=== PATIENT | female | born 1990 | race African-American/Black ===

== ENCOUNTER 2025-02-05 22:06 | Emergency (ER) | payer OTHER ==
[2025-02-05 22:17] VITALS: BMI 35.9
[2025-02-05 23:41] LABS: HEMATOCRIT 37.1 % (34.1-44.9); MEAN CELL VOLUME 84.7 fl (79.4-94.8); PLATELET COUNT # 357 x10^3/uL (182-369); RDW 11.2 % (12.1-16.8)
[2025-02-06 00:04] LABS: POTASSIUM 4.7 mmol/L (3.5-5.1)
[2025-02-06 00:06] LABS: CALCIUM 9.4 mg/dL (8.5-10.1)
[2025-02-06 00:07] LABS: ALBUMIN 3.1 g/dl (3.4-5.0); BLOOD UREA NITROGEN 9.8 mg/dL (7-18)
[2025-02-06 00:10] LABS: CREATININE 0.6 mg/dL (0.55-1.3)
[2025-02-06 00:12] LABS: BILIRUBIN,TOTAL 0.8 mg/dL (0.2-1); TOT PROT 7.6 g/dl (6.4-8.2)
[2025-02-06 00:33] LABS: ERYTHROCYTE SEDIMENTATION RATE 81 mm/hr (0-20)
[2025-02-06 00:39] VITALS: BP 127/82
[2025-02-06] MEDS ORDERED: ACETAMINOPHEN INJECTION 100 ML ONE (01:27)
[2025-02-06] MEDS: ACETAMINOPHEN 1000 MG/100 ML BAG IVPB ONE (01:36)
[2025-02-06] MEDS: SODIUM CHLORIDE 0.9% 500 ML INFUS.BAG IV ONE (01:36)
[2025-02-06 03:30] VITALS: PULSE 100; RESP 18; TEMP 98.2
[2025-02-06] MEDS ORDERED: CLINDAMYCIN HCL 150 MG CAPSULE (FP) ONE (03:35)
[2025-02-06] MEDS: CLINDAMYCIN HCL 150 MG CAPSULE (FP) PO ONE (03:41)
== END 2025-02-06 03:42 | disposition home or self-care (01) ==
LOC: JER 22:06
PROC: 3E033NZ Introduction of Analgesics, Hypnotics, Sedatives into Peripheral Vein, Percutaneous Approach (ICD-10-PCS; principal; 2025-02-06)
DX: L03.312 Cellulitis of back [any part except buttock and flank] (principal); R00.0 Tachycardia, unspecified
CPT/HCPCS: 36415; 74177-TC; 80053; 84703; 85027; 85651; 86140; 99285-25; J0131